=== PATIENT | female | born 1955 | race Caucasian/White ===

== ENCOUNTER 2021-08-26 11:54 | Day surgery (SDC) | payer MEDICARE, MEDICAID ==
[2021-08-22 09:36] LABS: BASOPHILS % (AUTO) 0.2 % (0-1); EOSINOPHILS # (AUTO) 0.2 X10'3 (0-0.9); HEMATOCRIT 39.9 % (35.0-45.0); HEMOGLOBIN 13.8 g/dl (12.0-16.0); LYMPHOCYTES # (AUTO) 1.9 X10'3 (1.1-4.8); LYMPHOCYTES % (AUTO) 37.5 % (21-51); MEAN CORPUSCULAR HEMOGLOBIN 32.3 PG (27.0-31.0); MEAN CORPUSCULAR HGB CONC 34.6 g/dL (33.0-36.5); MEAN CORPUSCULAR VOLUME 93.2 FL (78-98); MEAN PLATELET VOLUME 8.3 FL (7.4-10.4); MONOCYTES # (AUTO) 0.3 X10'3 (0-0.9); NEUTROPHILS # (AUTO) 2.7 X10'3 (1.8-7.7); NEUTROPHILS % (AUTO) 52.3 % (42-75); PLATELET COUNT 136 X10'3 (140-440); RED BLOOD COUNT 4.28 X10'6 (4.20-5.60); RED CELL DISTRIBUTION WIDTH 14.4 % (11.5-14.5); WHITE BLOOD COUNT 5.2 X10'3 (4.5-11.0)
[2021-08-22 09:42] LABS: APTT 27 SECONDS (22-32)
[2021-08-22 09:49] LABS: ANION GAP 13 (8-16); BLOOD UREA NITROGEN 15 MG/DL (7-18); BUN/CREATININE RATIO 14.2 (6.6-38.0); CHLORIDE 106 MMOL/L (99-107); CHOL/HDL RATIO 3.1 (0.00-4.99); CHOLESTEROL 137 MG/DL (0-200); CREATININE 1.06 MG/DL (0.40-0.90); GLUCOSE 108 MG/DL (70-104); HDL CHOLESTEROL 44 MG/DL (35-60); LDL CHOLESTEROL 69 MG/DL (50-100); POTASSIUM 3.3 MMOL/L (3.5-5.1); SODIUM 144 MMOL/L (135-145); TOTAL CARBON DIOXIDE 25.4 MMOL/L (24-32); TRIGLYCERIDES 132 MG/DL (20-135); eGFR 52 ML/MIN
[2021-08-26] VITALS (10 sets, daily range): BP systolic 90–115; BP diastolic 57–73
[~2021-08-26] VITALS: Ht 172.7 cm; Wt 81.9 kg
[~2021-08-26 11:54] MED LIST: NO HOME MEDS
[2021-08-26] MEDS ORDERED: normal saline 1,000 ML IV SCH (12:15)
[2021-08-26] MEDS ORDERED: diphenhydrAMINE 25mg capsule PO PRN (12:15)
[2021-08-26] MEDS ORDERED: LORazepam 0.5 MG tablet PO PRN (12:15)
[2021-08-26] MEDS ORDERED: LACT1CAP75 PO (12:17)
[2021-08-26] MEDS ORDERED: ROSU20TA31 PO (12:17)
[2021-08-26] MEDS ORDERED: LURA60TA PO (12:17)
[2021-08-26] MEDS ORDERED: DILT120T3 PO (12:17)
[2021-08-26] MEDS ORDERED: AMIO200T61 PO (12:17)
[2021-08-26] MEDS ORDERED: SERT-434 PO (12:17)
[2021-08-26] MEDS ORDERED: VALB80CA PO (12:17)
[2021-08-26] MEDS ORDERED: ASPI-1265 PO (12:17)
[2021-08-26] MEDS ORDERED: FURO20TA4 PO (12:17)
[2021-08-26] MEDS ORDERED: verapamil 2.5 mg/ml inj IV ONE (14:19)
[2021-08-26] MEDS ORDERED: nitroGLYCERIN-Tridil 50MG/D5W 250 ML IV ONE (14:19)
[2021-08-26] MEDS ORDERED: iohexol 350MG/ML 100ml bottle IV ONE ×2 (14:20→14:56)
[2021-08-26] MEDS ORDERED: LIDOcaine 1%/PF 5ML 10 MG/ML VIAL ONE (14:20)
[2021-08-26] MEDS ORDERED: fentaNYL/PF 50MCG/1 ML 2ML syringe ONE (14:20)
[2021-08-26] MEDS ORDERED: heparin 1,000unit/ml 10ml vial 10 ML ONE (14:20)
[2021-08-26] MEDS ORDERED: midazolam 1 mg/ML 2ml injection ONE (14:20)
--- NOTE | 2021-08-26 15:30 | NUR ---
Pt sitting up in bed, Billy assisting pt to eat a sandwich. Pt tolerating sandwich and juice without problems.
[2021-08-26] MEDS ORDERED: ondansetron/PF 4mg/2ml inj IV PRN (15:35)
[2021-08-26] MEDS ORDERED: HYDROcodone/acetaminophen 10/325mg tab PO PRN (15:35)
[2021-08-26] MEDS ORDERED: OXAZEpam 15mg capsule PO PRN (15:35)
[2021-08-26] MEDS ORDERED: HYDROcodone/acetaminophen 5mg/325mg tablet PO PRN (15:35)
[2021-08-26] MEDS ORDERED: proCHLORperazine 10 MG/2 ml inj IV PRN (15:35)
--- NOTE | 2021-08-26 17:10 | NUR ---
Pt up amb in hallway, gait steady.
== END 2021-08-26 17:20 | disposition home or self-care (01) ==
LOC: SSTAY O 11:54
PROVIDERS: ATTEND Student in an Organized Health Care Education/Training Program
DX: I25.10 Atherosclerotic heart disease of native coronary artery without angina pectoris (principal); I10 Essential (primary) hypertension; I48.91 Unspecified atrial fibrillation; I48.0 Paroxysmal atrial fibrillation; I08.1 Rheumatic disorders of both mitral and tricuspid valves; F41.9 Anxiety disorder, unspecified; E78.5 Hyperlipidemia, unspecified; Z79.899 Other long term (current) drug therapy; Z79.01 Long term (current) use of anticoagulants; Z98.890 Other specified postprocedural states; Z87.891 Personal history of nicotine dependence
CPT/HCPCS: 36415; 80048; 80061; 85025; 85610; 85730; 93005; 93458; 99152; 99153; C1769; C1894; J1644; J2250; J3010; J3490; J7030; Q0163; Q9967; 93452; A4620; A5120; A6258; A6402

== ENCOUNTER 2021-09-29 09:31 | Emergency (ER) | payer MEDICARE, MEDICAID ==
[~2021-09-29] VITALS: Ht 167.6 cm; Wt 81.8 kg
[~2021-09-29 09:31] MED LIST changes: +AMIO200T61 PO; +ASPI-1265 PO; +DILT120T3 PO; +FURO20TA4 PO; +LACT1CAP75 PO; +LURA60TA PO; +ROSU20TA31 PO; +SERT-434 PO; +VALB80CA PO
[2021-09-29 10:25] LABS: BASOPHILS % (AUTO) 0.3 % (0-1); EOSINOPHILS % (AUTO) 0.9 % (0-6); HEMATOCRIT 42.3 % (35.0-45.0); HEMOGLOBIN 14.7 g/dl (12.0-16.0); LYMPHOCYTES # (AUTO) 2.2 X10'3 (1.1-4.8); LYMPHOCYTES % (AUTO) 42.5 % (21-51); MEAN CORPUSCULAR HEMOGLOBIN 32.7 PG (27.0-31.0); MEAN CORPUSCULAR HGB CONC 34.8 g/dL (33.0-36.5); MEAN CORPUSCULAR VOLUME 94.2 FL (78-98); MEAN PLATELET VOLUME 8.2 FL (7.4-10.4); MONOCYTES # (AUTO) 0.4 X10'3 (0-0.9); MONOCYTES % (AUTO) 6.7 % (2-12); NEUTROPHILS # (AUTO) 2.6 X10'3 (1.8-7.7); NEUTROPHILS % (AUTO) 49.6 % (42-75); PLATELET COUNT 166 X10'3 (140-440); RED BLOOD COUNT 4.49 X10'6 (4.20-5.60); RED CELL DISTRIBUTION WIDTH 15.6 % (11.5-14.5); WHITE BLOOD COUNT 5.3 X10'3 (4.5-11.0)
[2021-09-29 10:27] LABS: CLARITY,URINE CLEAR (Clear); GLUCOSE, URINE NEGATIVE (Neg); KETONES,URINE NEGATIVE (Neg); LEUKOCYTE ESTERASE ,URINE NEGATIVE (Neg); NITRITES, URINE NEGATIVE (Neg); OCCULT BLOOD,URINE NEGATIVE (Neg); PROTEIN,URINE NEGATIVE (Neg); UROBILINOGEN,URINE 0.2 E.U/dL (0.2-1.0)
[2021-09-29 10:29] LABS: COLOR,URINE STRAW (Yellow); UA COLLECTION TYPE CLN CATCH MIDSTREAM
[2021-09-29 10:41] LABS: ALANINE AMINOTRANSFERASE 45 U/L (12-78); ALBUMIN 4.6 G/DL (3.4-5.0); ALBUMIN/GLOBULIN RATIO 1.2 (1.1-1.5); ALKALINE PHOSPHATASE 108 IU/L (46-116); ANION GAP 12 (8-16); ASPARTATE AMINO TRANSFERASE 31 U/L (10-37); BILIRUBIN,TOTAL 0.7 MG/DL (0.1-1.0); BLOOD UREA NITROGEN 15 MG/DL (7-18); BUN/CREATININE RATIO 11.8 (6.6-38.0); CALCIUM 9.6 MG/DL (8.5-10.1); CHLORIDE 101 MMOL/L (99-107); CREATININE 1.27 MG/DL (0.40-0.90); GLUCOSE 110 MG/DL (70-104); SODIUM 139 MMOL/L (135-145); TOTAL CARBON DIOXIDE 26.4 MMOL/L (24-32); TOTAL PROTEIN 8.3 G/DL (6.4-8.2); eGFR 42 ML/MIN
[2021-09-29] MEDS ORDERED: potassium Cl 10 mEq/100mL bag IV ONE (11:00)
[2021-09-29] MEDS: potassium Cl 20 mEq SR tablet PO STA ×2 (11:00→11:21)
[2021-09-29] MEDS ORDERED: POTA-192 PO (11:11)
[2021-09-29] MEDS ORDERED: POTASSIUM BICARB 20meq eff tab 20 MEQ TABLET.EFF PO SCH (11:25)
[2021-09-29] MEDS ORDERED: LORA-269 PO (12:04)
[2021-09-29 12:09] VITALS: BP 98/63
== END 2021-09-29 12:15 | disposition home or self-care (01) ==
LOC: ER 09:31
DX: E87.6 Hypokalemia (principal); E86.0 Dehydration; I48.20 Chronic atrial fibrillation, unspecified; R14.0 Abdominal distension (gaseous); R13.10 Dysphagia, unspecified; J44.9 Chronic obstructive pulmonary disease, unspecified; F12.90 Cannabis use, unspecified, uncomplicated; F15.90 Other stimulant use, unspecified, uncomplicated; Z72.89 Other problems related to lifestyle; Z98.51 Tubal ligation status; Z79.82 Long term (current) use of aspirin; Z79.899 Other long term (current) drug therapy; Z79.01 Long term (current) use of anticoagulants; Z87.891 Personal history of nicotine dependence
CPT/HCPCS: 36415; 70450; 71045; 80053; 81003; 82948; 84484; 85025; 93005; 99285; A6258

== ENCOUNTER 2021-11-14 09:14 | Outpatient (CLI) | payer MEDICARE, MEDICAID ==
[~2021-11-14 09:14] MED LIST changes: -AMIO200T61 PO; +AMIO200T67 PO; +APIX5TAB3 PO; -ASPI-1265 PO; +ASPI81TA53 PO; -DILT120T3 PO; -LACT1CAP75 PO; +LAN0.125T PO; +LORA-269 PO; +MIDO5TAB4 PO; -NO HOME MEDS; +PANT40TA54 PO; +POTA10CA44 PO
[2021-11-14 09:58] LABS: BASOPHILS % (AUTO) 0.2 % (0-1); EOSINOPHILS # (AUTO) 0.1 X10'3 (0-0.9); EOSINOPHILS % (AUTO) 1.6 % (0-6); HEMATOCRIT 32.6 % (35.0-45.0); LYMPHOCYTES # (AUTO) 1.2 X10'3 (1.1-4.8); LYMPHOCYTES % (AUTO) 17.1 % (21-51); MEAN CORPUSCULAR HEMOGLOBIN 32.6 PG (27.0-31.0); MEAN CORPUSCULAR HGB CONC 33.9 g/dL (33.0-36.5); MEAN PLATELET VOLUME 8.1 FL (7.4-10.4); MONOCYTES # (AUTO) 0.4 X10'3 (0-0.9); NEUTROPHILS # (AUTO) 5.4 X10'3 (1.8-7.7); NEUTROPHILS % (AUTO) 76.1 % (42-75); PLATELET COUNT 258 X10'3 (140-440); RED BLOOD COUNT 3.39 X10'6 (4.20-5.60); RED CELL DISTRIBUTION WIDTH 15.8 % (11.5-14.5); WHITE BLOOD COUNT 7.1 X10'3 (4.5-11.0)
[2021-11-14 10:06] LABS: ALBUMIN 3.7 G/DL (3.4-5.0); ANION GAP 10 (8-16); BLOOD UREA NITROGEN 12 MG/DL (7-18); BUN/CREATININE RATIO 14.3 (6.6-38.0); CALCIUM 9.3 MG/DL (8.5-10.1); CHLORIDE 101 MMOL/L (99-107); CREATININE 0.84 MG/DL (0.40-0.90); GLUCOSE 107 MG/DL (70-104); POTASSIUM 4.3 MMOL/L (3.5-5.1); SODIUM 136 MMOL/L (135-145); TOTAL CARBON DIOXIDE 25.4 MMOL/L (24-32); eGFR 68 ML/MIN
== END 2021-11-14 23:59 | disposition home or self-care (01) ==
LOC: LAB 09:14
PROVIDERS: ATTEND Thoracic Surgery (Cardiothoracic Vascular Surgery)
DX: D64.9 Anemia, unspecified (principal); E78.5 Hyperlipidemia, unspecified
CPT/HCPCS: 36415; 80048; 85025